=== PATIENT | female | born 1970 | race Caucasian/White ===

== ENCOUNTER → 2019-07-12 10:27 | Outpatient (BNVA) | payer SELFPAY | PROVIDERS: Family Provider Nurse Practitioner; PCP Obstetrics & Gynecology; Visit Provider Family Medicine | DX: R50.9 Fever, unspecified (principal); N10 Acute pyelonephritis; B37.3 Candidiasis of vulva and vagina; N12 Tubulo-interstitial nephritis, not specified as acute or chronic; Z87.442 Personal history of urinary calculi | CPT/HCPCS: 81003 ==

== ENCOUNTER 2024-02-15 18:14 | Emergency (ER) | payer OTHER, SELFPAY ==
[2024-02-15 18:51] VITALS: BP 148/94; PULSE 73; RESP 16; TEMP 36.8; O2SAT 96; BMI 30.2
--- NOTE | 2024-02-15 19:10 | USR_ITS ---
PROCEDURE INFORMATION: Exam: US Duplex Left Lower Extremity Veins, Limited Exam date and time: 02/15/2024 7:16 PM Age: 54 years old Clinical indication: Pain; Leg, lower; Left; Additional info: Swelling and pain leg TECHNIQUE: Imaging protocol: Real-time duplex ultrasound of the left extremity with 2-D peralta scale, color Doppler flow and spectral waveform analysis including responses to compression and other maneuvers (when performed) with image documentation. Limited exam focused on the left lower extremity veins. COMPARISON: No relevant prior studies available. FINDINGS: Left deep veins: Unremarkable. The common femoral, femoral, proximal profunda femoral and popliteal veins are patent without thrombus. Normal Doppler waveforms. Normal compressibility and/or augmentation response. Superficial veins: Greater saphenous vein at the saphenofemoral junction is patent without thrombus. Soft tissues: 2.5 cm Lynne's cyst. Left foot 2 cm fluid collection in the subcutaneous fat anteriorly in the area of concern, nonspecific. US/[place] [id number] IMPRESSION: 1. Negative for deep venous thrombosis 2. 2.5 cm Lynne's cyst. 3. Left foot 2 cm fluid collection in the subcutaneous fat anteriorly in the area of concern, nonspecific.
--- NOTE | 2024-02-15 19:34 | ED_ITS ---
HPI - Extremity Problem General: Chief complaint: Extremity Problem,Nontraumatic Stated complaint: swelling in left leg post surgery Time Seen by Provider: 02/15/24 19:10 History of Present Illness: 54-year-old female comes in today with s welling to the left leg postsurgery. Patient had a plastic surgery of the face done about 1 week ago. Patient appears nontoxic. Patient appears no acute distress. Patient noticed the swelling and discomfort today. Related Data Home Medications Medication Instructions Recorded Confirmed thyroid (pork) 90 mg tablet 90 mg PO QDAY 07/12/19 07/12/19 ([place] Thyroid) Previous Rx's Medication Instructions Recorded fluconazole 150 mg tablet 150 mg PO ONCE PRN yeast #1 tab 07/12/19 Allergies Allergy/AdvReac Type Severity Reaction Status Date / Time ciprofloxacin Allergy MUSCLE Verified 02/15/24 18:59 ACHES codeine Allergy nausea Verified 02/15/24 18:59 Penicillins Allergy rash Verified 02/15/24 18:59 Review of Systems General: Reports: 10 or more systems reviewed and unremarkable except in HPI and below PFSH ED PFSH: Social History (Updated 07/12/19 @ 10:25 by Heather Simeon LPN) Smoking and tobacco/nicotine status: never used tobacco/nicotine Alcohol intake: current Alcohol type: wine Substance/Drug Use: never Physical Exam Const: COMMON NORMALS: alert HENMT: COMMON NORMALS: normocephalic HEAD & SCALP: normocephalic Neck/C-Spine: COMMON NORMALS: full ROM Resp: COMMON NORMALS: normal respiratory effort Cardio: COMMON NORMALS: regular rate RATE: regular rate Back/Pelvis: COMMON NORMALS: thoracic and lumbar spine normal to inspection Extremity: LEFT LOWER EXTREMITY: Yes knee joint (Posterior knee tenderness) Neuro: SENSORIUM/ORIENTATION: Yes alert Skin: COMMON NORMALS: turgor normal GENERAL SKIN EXAM: turgor normal Course Vital Signs: Vital signs: Vital Signs Temperature 98.2 F 02/15/24 19:46 Pulse Rate 69 02/15/24 19:46 Respiratory Rate 16 02/15/24 19:46 Blood Pressure 141/89 02/15/24 19:46 Pulse Oximetry 97 02/15/24 19:46 Oxygen Delivery Me thod Room Air 02/15/24 18:51 MDM - Extremity (Nontraumatic) Medical Decision Making 54-year-old female comes in today with increased pain and discomfort to the left lower leg. On exam patient has some mild swelling noted to the left leg when compared to the right. Patient also has some posterior tenderness of the knee. Differential diagnosis includes, limited to DVT, Lynne's cyst, lymphedema. Ultrasound of the lower extremity noted a Lynne's cyst but no sign of DVT. Patient was recommended to elevate the extremity and continue with routine care. Recommend follow-up with orthopedics regarding Lynne's cyst. Patient reports understanding agreed to plan. Lab Data Radiology Impressions Venous Duplex 02/15/24 19:10 IMPRESSION: 1. Negative for deep venous thrombosis 2. 2.5 cm Lynne's cyst. 3. Left foot 2 cm fluid collection in the subcutaneous fat anteriorly in the area of concern, nonspecific. All radiology interpretation(s) finalized by discharge Discharge Plan Discharge Patient Disposition: Home Clinical Impression: Synovial cyst of popliteal space [Lynne], left knee Condition: Stable Prescriptions: No Action thyroid (pork) [[place] Thyroid] 90 mg tablet 90 mg PO QDAY fluconazole 150 mg tablet 150 mg PO ONCE PRN (Reason: yeast) Qty: 1 0RF Rx Instructions: as a single dose. Take after completion of antibiotic if needed. Discharge Orders: Discharge ED (Routine); Ordered 02/15/24 Ordered By: Jules Paulson Referrals: Elham Jeffers MD [Primary Care Provider] - Elaina Haywood FNP-C [Family Provider] - Discharge Diet: Usual diet Discharge Activity: Increase activity as tolerated Patient Instructions: Lynne Cyst (ED) Activity Restrictions/Additional Instructions: Activity as tolerated. Use acetaminophen and/or ibuprofen for pain and discomfort. Elevate leg is much as possible to help with swelling. Follow-up with primary care as needed. Case management will contact you regarding follow- up with orthopedics for further evaluation of Lynne's cyst. Coding Level of Care Code ED [employer] [facility]
[2024-02-15 19:46] VITALS: BP 141/89; PULSE 69; RESP 16; TEMP 36.8; O2SAT 97
--- NOTE | 2024-02-16 07:40 | DCPLANNER ---
messaged ortho for er f/u
== END 2024-02-15 19:47 | disposition home or self-care (01) ==
PROVIDERS: Emergency Provider Nurse Practitioner Family; Family Provider Nurse Practitioner; PCP Family Medicine
DX: M71.22 Synovial cyst of popliteal space [Baker], left knee (principal)
CPT/HCPCS: 93971; 99284